=== PATIENT | male | born 1940 | race Caucasian/White ===

== ENCOUNTER 2018-05-09 05:48 | Day surgery (SDC) | payer OTHER ==
[2018-05-09] MEDS ORDERED: LIDOCAINE 1% 2 ML INJ ID PRN (06:17)
[2018-05-09] MEDS ORDERED: ceFAZolin 2 GM/DEXTROSE 100 ML IV ONE (06:17)
[2018-05-09] MEDS ORDERED: LR 1,000 ML IV ONE (06:17)
--- NOTE | 2018-05-09 06:30 | PDANEPAE ---
ANE History of Present Illness laparoscopic inguinal hernia repair ANE Past Medical History - Cardiovascular History Hx Hypertension: Yes Hx Arrhythmias: No Hx Chest Pain: No Hx Coronary Artery / Peripheral Vascular Disease: No Hx CHF / Valvular Disease: No Hx Palpitations: No Cardiovascular History Comment: Hyperlipidemia - Pulmonary History Hx COPD: Yes Hx Asthma/Reactive Airway Disease: No Hx Recent Upper Respiratory Infection: No Hx Oxygen in Use at Home: No Hx Sleep Apnea: No Sleep Apnea Screening Result - Last Documented: Positive - Neurologic History Hx Cerebrovascular Accident: No Hx Seizures: No Hx Dementia: No - Endocrine History Hx Diabetes: No Hypothyroid: Yes Hyperthyroid: No Obesity: no - Renal History Hx Renal Disorders: No - Liver History Hx Hepatic Disorders: No - Neurological & Psychiatric Hx Hx Neurological and Psychiatric Disorders: No - Cancer History Hx Cancer: Yes Cancer History Comment: skin ca forehead - Congenital Disorder History Hx Congenital Disorders: No - GI History GERD: no Hx Gastrointestinal Disorders: No - Other Health History Other Health History: chronic post nasal drip. tooth implants - Chronic Pain History Chronic Pain: Yes (left rotator cuff) - Surgical History Prior Surgeries: cholecystectomy ANE Review of Systems Review of Systems: - Exercise capacity METS (RN): 6 METS ANE Patient History - Allergies Allergies/Adverse Reactions: No Known Allergies Allergy (Verified 04/28/18 11:15) - Home Medications Home Medications: Levothyroxine Sodium [Synthroid] 08/08/13 [Last Taken 1 Day Ago ~05/08/18] VALSARTAN/HYDROCHLOROTHIAZIDE [Diovan Hct 160-12.5 Mg Tab] 08/08/13 [Last Taken 1 Day Ago ~05/08/18] Atorvastatin Calcium 04/28/18 [Last Taken 1 Day Ago ~05/08/18] Cholecalciferol (Vitamin D3) 04/28/18 [Last Taken 05/03/18] Amlodipine Besylate 5 mg 05/09/18 [Last Taken 1 Day Ago ~05/08/18] Aspirin 81mg (*) 05/09/18 [Last Taken 1 Week Ago ~05/02/18] - NPO status NPO Since - Liquids (Date): 05/08/18 NPO Since - Liquids (Time): 21:30 NPO Since - Solids (Date): 05/08/18 NPO Since - Solids (Time): 19:00 - Anes Hx Anes Hx: no prior problems (1/2 ppd for 40 years, stopped about 5 years ago) - Smoking Hx Smoking Status: Former smoker - Alcohol Use Alcohol Use: Other (1-2 glasses of wine/day) - Family Anes Hx Family Anes Hx: none Family Hx Anesthesia Complications: none ANE Labs/Vital Signs - Vital Signs Height: 177.8 cm Weight: 75.75 kg ANE Physical Exam - Airway Neck exam: decreased ROM Mallampati Score: Class 2 Mouth exam: normal dental/mouth exam - Pulmonary Pulmonary: clear to auscultation - Cardiovascular Cardiovascular: regular rate and rhythym - ASA Status ASA Status: II ANE Anesthesia Plan Anesthesia Plan: general endotracheal anesthesia
[2018-05-09] MEDS ORDERED: BUPIVACAINE/EPI 0.5% 30 ML SDV ONE (06:52)
--- NOTE | 2018-05-09 06:53 | PDHPUP ---
History & Physical Update H&P update statement: This history and physical update is based on an assessment of the patient which was completed after admission or registration (within 24 hours), but prior to the surgery/procedure. H&P update: H&P reviewed & patient examined, no change in patient's condition since H&P completed
[2018-05-09] MEDS ORDERED: MIDAZOLAM 2 MG/2 ML VIAL IVP ONE (07:03)
[2018-05-09] MEDS ORDERED: ROCURONIUM 50 MG/5 ML VIAL ONE (07:08)
[2018-05-09] MEDS ORDERED: PROPOFOL 200 MG/20 ML VIAL ONE ×3 (07:08→08:00)
[2018-05-09] MEDS ORDERED: DEXAMETHASONE 4 MG/ML VIAL ONE (07:08)
[2018-05-09] MEDS ORDERED: fentaNYL 100 MCG/2 ML INJ ONE (07:08)
[2018-05-09] MEDS ORDERED: ENALAPRILAT DIHYDRATE 1.25 MG/ML VIAL ONE (07:58)
[2018-05-09] MEDS ORDERED: REMIFENTANIL HCL 1 MG VIAL ONE (07:59)
[2018-05-09] MEDS ORDERED: ONDANSETRON 4 MG/2 ML VIAL ONE (08:22)
[2018-05-09] MEDS ORDERED: SUGAMMADEX SODIUM 200 MG/2 ML VIAL IVP ONE (08:30)
[2018-05-09] MEDS ORDERED: PHENYLEPHRINE HCL 100 MCG/ML SYR ONE (08:31)
--- NOTE | 2018-05-09 08:34 | POSTOPPROG ---
Post Op Note Date of Operation: 05/09/18 Surgeon: Denis Reed Development Technologist: CIPRIANO Prasad Anesthesiologist: Zach Anesthesia: GET(General Endotracheal) Pre-op Diagnosis: RIH Post-op Diagnosis: same Procedure: Robotic assisted lap right inguinal hernia repair with mesh Findings: mod sized indirect defect on right Inf/Abcess present in the surg proc area at time of surgery?: No EBL: Minimal
[2018-05-09] MEDS ORDERED: NALOXONE HCL 0.4 MG/ML INJ IVP PRN (08:52)
[2018-05-09] MEDS ORDERED: HYDROmorphONE/DILAUDID 1 MG/ML INJ IVP PRN (08:52)
[2018-05-09] MEDS ORDERED: HYDROCODONE/APAP 5/325 TAB PO PRN (08:52)
[2018-05-09] MEDS ORDERED: oxyCODONE IR 5 MG TAB PO PRN (08:52)
[2018-05-09] MEDS ORDERED: fentaNYL 100 MCG/2 ML INJ IVP PRN (08:52)
[2018-05-09] MEDS ORDERED: oxyCODONE IR 5 MG TAB ONE (09:23)
--- NOTE | 2018-05-09 09:47 | POSTANESTH ---
Post Anesthetic Evaluation Cardiovascular Status: Similar to Pre-Op Cond Respiratory Status: Normal, Stable Level of Consciousness/Mental Status: Can Participate in Eval Pain Control: Adequate, Prn Tx Ordered Nausea/Vomiting Control: Adequate, Prn Tx Ordered Complications Possibly Related to Anesthesia: None Noted
[2018-05-09 10:39] VITALS: BP 158/74
--- NOTE | 2018-05-09 12:49 | GOP ---
[f rep st] OPERATIVE REPORT DATE OF OPERATION: 05/09/2018 SURGEON: Denis Reed MD WOOL GROWER: Lori Ross, Burr Bench Operator ANESTHESIA: General endotracheal. ANESTHESIOLOGIST: Chapin Serrano MD PREOPERATIVE DIAGNOSIS: Symptomatic right inguinal hernia. POSTOPERATIVE DIAGNOSIS: Symptomatic right inguinal hernia. PROCEDURE PERFORMED: Robotic-assisted laparoscopic right inguinal hernia repair with mesh. FINDINGS: Moderate-sized indirect defect on the right, successfully reduced. Defect repaired with Bard 3D Light large-size mesh. SPECIMENS: None. ESTIMATED BLOOD LOSS: 5 cc. DESCRIPTION OF PROCEDURE: The patient and his were greeted in the preoperative suite. Once again, risks, benefits, and alternatives were discussed. Consent was signed. He was then brought back to the operative suite , placed on the OR table in a supine position. After all anesthesia machines including SCDs were on and functioning, [employer] time-out was performed. After successful induction of general anesthesia, the patient's abdomen was prepped and draped in the typical sterile fashion. I entered the abdomen via a supraumbilical cutdown through which the Veress needle was passed. I successfully achieved pneumoperitoneum to 15 mmHg CO2 which was well tolerated by the patient. Through this, I then inserted an 8 mm trocar, then under direct visualization, inserted 2 additional 8 mm trocars, 1 in the right upper and 1 in the left upper quadrant. Once this was done, the patient was placed in gentle Trendelenburg position. The robot was then brought in and successfully docked. I inspected both the groins and identified only the right defect. I turned my attention toward making my preperitoneal flap, which was done just adjacent to the anterior superior iliac spine, all the way medial to the pubic tubercle. I carried my flap down to Iván ligament medially and the extent of the dissection laterally. I successfully reduced the sac off the cord structures and identified a moderate-sized indirect defect. I identified no direct or femoral hernias. Once the flap was taken down to the visceral sac , I then brought my mesh into the cavity. It was successfully attached to Iván ligament with an interrupted Vicryl suture, as well as on either side of the inferior epigastric vessels. After the mesh was allowed to lay appropriately, I closed the peritoneal defect with a running V-Loc suture. I then inspected the left side again and found no significant pathology. I evacuated my pneumoperitoneum. The skin was then closed with Monocryl over which Dermabond was placed. The patient was then extubated and taken to the PACU in satisfactory condition. DRAINS: None. COUNTS: All counts were reported as correct x2. /[id number]/MODL MTDD
== END 2018-05-09 10:38 | disposition home or self-care (01) ==
LOC: FSGY 05:48
PROVIDERS: ATTEND Surgery
PROC: 0YU54JZ Supplement Right Inguinal Region with Synthetic Substitute, Percutaneous Endoscopic Approach (ICD-10-PCS; principal; 2018-05-09 07:15)
PROC: 8E0W4CZ Robotic Assisted Procedure of Trunk Region, Percutaneous Endoscopic Approach (ICD-10-PCS; principal; 2018-05-09 07:15)
DX: K40.90 Unilateral inguinal hernia, without obstruction or gangrene, not specified as recurrent (principal); I10 Essential (primary) hypertension; E03.9 Hypothyroidism, unspecified; E78.5 Hyperlipidemia, unspecified; Z87.891 Personal history of nicotine dependence; Z80.0 Family history of malignant neoplasm of digestive organs
CPT/HCPCS: C1781; J0690; J1100; J2250; J2370; J2405; J2704; J3010